=== PATIENT | female | born 1955 | race Caucasian/White ===

== ENCOUNTER 2024-03-20 20:37 | Emergency (ER) | payer MEDICARE, BC, SELFPAY ==
[2024-03-20 20:39] VITALS: BP 150/70
--- NOTE | 2024-03-20 21:48 | ED.GENMED ---
History of Present Illness
General
Chief Complaint: Skin Problem
Source: patient
Exam Limitations: none
Time Seen by Provider: 03/20/24 21:40
History of Present Illness
History of Present Illness:
See MDM
Past History
Past History
ED Past Medical History: Other (Varicose Veins )
ED Past Surgical History: None
Social History
Tobacco: Non-smoker
Alcohol: None
Phy Exam
Physical Exam
Physical Exam:
See MDM
Course
Orders/Labs/Results
Orders:
Orders
03/20/24 21:47
US Periph Venous LOWER Ext LT Urgent
Comment:
Reason For Exam: left calf swelling and pain
03/20/24 22:14
Complete Blood Count/With Diff Urgent
Comprehensive Metabolic Panel Urgent
Abnormal Lab Results
03/20/24
22:14
MCHC 32.5 L g/dL
(33.0-37.0)
RDW 14.6 H %
(11.5-14.5)
Absolute Monos (auto) 0.7 H 10^3/uL
(0.1-0.6)
Chloride 108 H mmol/L
(98-107)
BUN 27 H mg/dl
(7-17)
Total Protein 6.1 L g/dl
(6.3-8.2)
03/20/24 22:14
03/20/24 22:14
Vital Signs
Initial and Last Documented VS:
Initial Vital Signs
Temp Pulse Resp BP Pulse Ox
97.6 F 86 20 150/70 100
03/20/24 20:39 03/20/24 20:39 03/20/24 20:39 03/20/24 20:39 03/20/24 20:39
Last Documented Vital Signs
Temp Pulse Resp BP Pulse Ox
97.6 F 86 20 150/70 100
03/20/24 20:39 03/20/24 20:39 03/20/24 20:39 03/20/24 20:39 03/20/24 20:39
MDM/Problems Addressed
Differential Diagnosis Includes:
HPI and MDM Narrative:
68-year-old female presenting with a rash to her right forearm and bruising to her left calf. She attributes the rash to right forearm as irritation from work she was doing. It is improving. She attributes the bruising to her left calf from a bug
bite. She presents with family to rule out any evidence of DVT before they go on vacation
In regards to the right forearm rash, it gives an almost shingles-like appearance but is improving so she is not a candidate for valacyclovir. Will obtain basic blood work to rule out any evidence of platelet issues or anemia. In regards to the
left calf bruising, there is no cellulitic changes. We discussed that she likely has a hematoma from an unknown injury. Will obtain ultrasound to rule out DVT
Physical exam
General: Well appearing and non-toxic
HEENT: protecting airway
Neck: appears supple
CV: No evidence of cyanosis
Resp: No accessory muscle use
Abd: Non-distended
Extremities: Circular area of bruising to left calf without cellulitic changes
Neuro: alert
Psych: Normal affect
Skin: Linear rash noted to right forearm. No palpable vesicles
Problems Addressed including Acute and Chronic Conditions affecting care:
1. Right forearm rash
Acuity: acute
Prognosis: stable
Details: Discussed possible skin irritation versus shingles. Given duration of rash with improving symptoms, she has not valacyclovir candidate. Will obtain blood work to rule out thrombocytopenia
2. Left calf bruising
Acuity: acute
Prognosis: stable
Details: Likely related to injury. She has a history of varicose veins. Will obtain ultrasound to rule out DVT
Updates
Platelets and hemoglobin within normal limits. Ultrasound negative for DVT. Discussed return precautions
Differential Diagnosis (but not limited to): Shingles, vasculitis, DVT, hematoma
Testing considered: Coags
Drug therapy (if applicable): OTC meds, please see d/c instruction regarding Rx drugs
Amount and/or Complexity of Data Reviewed
Clinical info obtained from: Patient
External data reviewed: N/A
Labs I independently reviewed (but not limited to): Hemoglobin and platelets normal
Radiology: Ultrasound report reviewed
Pulse Ox: not hypoxic
EKG independently reviewed: N/A
Aquatics Instructor: N/A
Critical Care: N/A
Risk of Complication:
Social Determinants of health: Good social support
Discussed with other providers: N/A
Escalation of Care includes Admit/Obs: After being observed in the Emergency Department, pt stable for discharge.
Occasional wrong word or 'sound a like' substitutions may have occurred due to the inherent limitations of voice recognition software. Read the chart carefully and recognize, using context, where substitutions have occurred.
*Critical Care Note
Total Time (30-74mins, 75-104mins- exclusive of procedures): Not Applicable
ED Attending Note
-
Portions of this chart may have been created with voice recognition software.� Occasional wrong word or��sound alike� substitutions may have occurred due to the inherent limitations of voice recognition software.
Discharge Plan
Departure
Patient Disposition: Home (Routine Discharge)
Date of Disposition: 03/20/24
Time of Disposition: 22:52
Patient with high blood pressure during this ER visit?: Yes
Discharge Problem:
Hematoma of lower leg
Instructions: BLOOD PRESSURE
Referrals:
Sunita Zhang PA-C [Family Provider] -
Activity Restrictions/Additional Instructions:
Please return for any worsening symptoms.
You may return at any time if you have further concerns.
Please follow up with your doctor when you return from vacation at the first available appointment.
Thank you for choosing [facility].
Interventions
Interventions:
*Risk Screen - Suicide Last Done: 03/20/24 20:39
*Neglect/Abuse Screening Last Done: 03/20/24 20:39
Discharge Date and Time
Print Language: PANAMANIAN
[2024-03-20 22:21] LABS: % Basophils 0.6 % (0-2); % Eosinophils 1.6 % (0-6); % Immature Granulocytes 0.2 % (0-0.5); % Lymphocytes 30.2 % (20.5-51.1); % Monocytes 7.7 % (1.7-9.3); % Neutrophils 59.7 % (42.2-75.2); Absolute Basophils 0.1 10^3/uL (0-0.2); Absolute Eosinophils 0.2 10^3/uL (0-0.7); Absolute Lymphocytes 2.9 10^3/uL (1.2-3.4); Absolute Monocytes 0.7 10^3/uL (0.1-0.6); Absolute Neutrophils 5.8 10^3/uL (1.4-6.5); Hematocrit 39.1 % (37.0-47.0); Hemoglobin 12.7 g/dL (12.0-16.0); Mean Corp Hgb Conc. 32.5 g/dL (33.0-37.0); Mean Corpuscular Volume 89.3 fL (81.0-99.0); Mean Platelet Volume 9.7 fL (7.4-10.4); Nucleated Red Blood Cells % 0 %; Platelet Count 219 10^3/uL (130-400); Red Blood Cell Count 4.38 10^6/uL (4.20-5.40); Red Cell Dist. Width 14.6 % (11.5-14.5); White Blood Cell Count 9.7 10^3/uL (4.8-10.8)
[2024-03-20 22:35] LABS: ALT (SGPT) 22 U/L (0-35); AST (SGOT) 32 U/L (14-36); Albumin 3.9 g/dl (3.5-5.0); Alkaline Phosphatase 71 U/L (38-126); Blood Urea Nitrogen 27 mg/dl (7-17); Calcium 9.5 mg/dl (8.4-10.2); Carbon Dioxide 27 mmol/L (22-30); Chloride 108 mmol/L (98-107); Glucose 89 mg/dl (70-99); Potassium 4.1 mmol/L (3.5-5.1); Sodium 139 mmol/L (135-145); Total Bilirubin 0.9 mg/dl (0.2-1.3); Total Protein 6.1 g/dl (6.3-8.2); eGFR > 60.00
[2024-03-20 23:12] VITALS: BP 134/69
== END 2024-03-20 23:14 | disposition home or self-care (01) ==
LOC: EMR 20:37
PROVIDERS: EMERGENCY PHYSICIAN Student in an Organized Health Care Education/Training Program; FAMILY PHYSICIAN Physician Assistant
DX: S80.12XA Contusion of left lower leg, initial encounter (principal); R21 Rash and other nonspecific skin eruption; W57.XXXA Bitten or stung by nonvenomous insect and other nonvenomous arthropods, initial encounter; M79.605 Pain in left leg; R03.0 Elevated blood-pressure reading, without diagnosis of hypertension; I83.92 Asymptomatic varicose veins of left lower extremity; Z88.1 Allergy status to other antibiotic agents; Z88.5 Allergy status to narcotic agent
CPT/HCPCS: 99284; 80053; 85025; 93971

== ENCOUNTER → 2024-05-31 12:57 | Outpatient (REF) | payer MEDICARE, BC, SELFPAY | LOC: HWEVLT 12:57 | PROVIDERS: ATTENDING PHYSICIAN Radiology Diagnostic Radiology | DX: I83.893 Varicose veins of bilateral lower extremities with other complications (principal) | CPT/HCPCS: 93970 ==

== ENCOUNTER → 2024-07-25 08:02 | Outpatient (REF) | payer MEDICARE, BC, SELFPAY | LOC: HWEVLT 08:02 | PROVIDERS: ATTENDING PHYSICIAN Radiology Vascular & Interventional Radiology | DX: I83.892 Varicose veins of left lower extremity with other complications (principal) | CPT/HCPCS: 36478; C1769 ==

== ENCOUNTER → 2024-08-08 11:28 | Outpatient (REF) | payer MEDICARE, BC, SELFPAY | LOC: HWEVLT 11:28 | PROVIDERS: ATTENDING PHYSICIAN Radiology Vascular & Interventional Radiology | DX: I83.892 Varicose veins of left lower extremity with other complications (principal) | CPT/HCPCS: 93971 ==